=== PATIENT | female | born 1990 | race Caucasian/White ===

== ENCOUNTER → 2020-06-10 | Outpatient (CLI) | payer MEDICAID | LOC: GMA CAST 11:23 | PROVIDERS: ATTEND Family Medicine Sports Medicine | DX: F31.9 Bipolar disorder, unspecified (principal); Z79.899 Other long term (current) drug therapy ==

== ENCOUNTER → 2020-06-13 | Outpatient (CLI) | payer MEDICAID | LOC: GMA CAST 09:31 | PROVIDERS: ATTEND Family Medicine Sports Medicine | DX: F31.9 Bipolar disorder, unspecified (principal) ==

== ENCOUNTER → 2020-06-17 | Outpatient (CLI) | payer MEDICAID | LOC: GMA CAST 09:21 | PROVIDERS: ATTEND Family Medicine Sports Medicine | DX: F31.9 Bipolar disorder, unspecified (principal) ==